=== PATIENT | female | born 1960 | race Caucasian/White ===

== ENCOUNTER 2016-11-14 12:01 | Emergency (ER) | payer SELFPAY ==
[2016-11-14 12:46] LABS: Blood, Urine Large (Negative); Clarity Cloudy (Clear); Glucose, Urine (Dipstick) 100 mg/dL (Negative); Leukocyte Large (Negative); Nitrite Positive (Negative); Protein, Urine (Dipstick) > or equal to 300 mg/dL (Neg-Trace)
[2016-11-14 12:51] LABS: Bilirubin Negative (Negative); Icto Negative (Negative)
[2016-11-14 12:54] LABS: RBC/HPF GREATER THAN 50-TNTC HPF (0-3); Squamous Epithelial 0-3 HPF (0-3)
[2016-11-14 12:55] LABS: Bacteria/HPF 1+ HPF (None Seen)
[2016-11-14] MEDS ORDERED: Nitrofurantoin Monohyd/M-Cryst 100 MG CAP ONE (13:04)
== END 2016-11-14 13:15 | disposition home or self-care (01) ==
LOC: MADERS 12:01
DX: N39.0 Urinary tract infection, site not specified (principal); F17.210 Nicotine dependence, cigarettes, uncomplicated
CPT/HCPCS: 81003; 81015; 87077; 87086; 87186; 99283